=== PATIENT | female | born 1960 | race African-American/Black ===

== ENCOUNTER 2017-11-24 10:27 | Outpatient (CLI) | payer BC ==
--- NOTE | 2017-11-24 12:14 | RAD ---
PA AND LATERAL VIEWS OF THE CHEST: HISTORY: Dyspnea. FINDINGS: The heart size is normal. The lungs are well expanded without focal areas of consolidation, pneumoth orax, or pleural effusions. Mild degenerative changes are seen in the spine. IMPRESSION: No radiograph evidence of acute cardiopulmonary process. POS: [facility]
== END 2017-11-24 10:28 | disposition home or self-care (01) ==
LOC: RAD 10:27
PROVIDERS: ATTEND Internal Medicine Critical Care Medicine
DX: R06.00 Dyspnea, unspecified (principal)
CPT/HCPCS: 71046

== ENCOUNTER 2019-02-24 08:42 | Outpatient (CLI) | payer BC ==
--- NOTE | 2019-02-24 10:27 | MMO ---
Bilateral MAMMO Bilat Screen [facility]. CLINICAL HISTORY: Patient is 58 years old and is seen for screening. The patient has the following family history of breast cancer: mother. The patient has no personal history of cancer. VIEWS: The views performed were: bilateral craniocaudal with tomosynthesis and bilateral mediolateral oblique with tomosynthesis. FILMS COMPARED: The present examination has been compared to prior imaging studies performed at [facility] on 12/12/2011 and 01/09/2016. MAMMOGRAM FINDINGS: There are scattered fibroglandular densities. There are no suspicious masses, suspicious calcifications, or new areas of architectural distortion. IMPRESSION: THERE IS NO MAMMOGRAPHIC EVIDENCE OF MALIGNANCY. A ROUTINE FOLLOW-UP MAMMOGRAM IN 1 YEAR IS RECOMMENDED. THE RESULTS OF THIS EXAM WERE SENT TO THE PATIENT. ACR BI-RADS Category 1 - Negative MAMMOGRAPHY NOTE: 1. A negative mammogram report should not delay a biopsy if a dominant of clinically suspicious mass is present. 2. Approximately 10% to 15% of breast cancers are not detected by mammography. 3. Adenosis and dense breasts may obscure an underlying neoplasm. Reported by: WU MCINTOSH MD Electonically Signed: [id number]
== END 2019-02-24 08:43 | disposition home or self-care (01) ==
LOC: BICMAMMO 08:42
PROVIDERS: ATTEND Family Medicine
DX: Z12.31 Encounter for screening mammogram for malignant neoplasm of breast (principal)
CPT/HCPCS: 77063; 77067

== ENCOUNTER 2022-11-03 10:34 | Outpatient (CLI) | payer BC | END 2022-11-03 10:35 | disposition home or self-care (01) | LOC: LABBT 10:34 | PROVIDERS: ATTEND Student in an Organized Health Care Education/Training Program | DX: Z01.818 Encounter for other preprocedural examination (principal); K14.8 Other diseases of tongue; R59.0 Localized enlarged lymph nodes | CPT/HCPCS: 85014; 93005; 93010 ==

== ENCOUNTER 2022-11-04 05:53 | Day surgery (SDC) | payer BC ==
[2022-11-03 12:07] VITALS: BMI 30.7
[2022-11-04] MEDS ORDERED: EPINEPHrine 1 MG/ML AMP ONE ×2 (06:51→08:08)
[2022-11-04] MEDS ORDERED: fentaNYL PF 100 MCG/2 ML SYRINGE ONE (07:10)
[2022-11-04] MEDS ORDERED: Dexmedetomidine 200 MCG/2 ML VIAL ONE (07:10)
[2022-11-04] MEDS ORDERED: Clindamycin/D5W 600 mg/50 ml Premix Bag ONE (07:27)
[2022-11-04] MEDS ORDERED: GLYCOPYRROLATE/PF 0.2 MG/ML VIAL ONE (07:41)
[2022-11-04] MEDS ORDERED: Lidocaine 1% PF 5 ML VIAL ONE (07:41)
[2022-11-04] MEDS ORDERED: Succinylcholine Chloride 100 MG/5 ML SYRINGE FS ONE (07:41)
[2022-11-04] MEDS ORDERED: Dexamethasone 20 MG/5 ML VIAL ONE (07:41)
[2022-11-04] MEDS ORDERED: Ondansetron PF 4 MG/2 ML Vial ONE (07:41)
[2022-11-04] MEDS ORDERED: PROPOFOL 200 MG/20 ML VIAL ONE ×2 (07:41)
[2022-11-04] MEDS ORDERED: ePHEDrine Sulfate 50 MG/10 ML VIAL ONE (07:41)
== END 2022-11-04 09:43 | disposition home or self-care (01) ==
LOC: SDC 05:53
PROVIDERS: ATTEND Student in an Organized Health Care Education/Training Program
PROC: 0CBS8ZX Excision of Larynx, Via Natural or Artificial Opening Endoscopic, Diagnostic (ICD-10-PCS; principal; 2022-11-04)
PROC: 0CBM8ZX Excision of Pharynx, Via Natural or Artificial Opening Endoscopic, Diagnostic (ICD-10-PCS; principal; 2022-11-04)
PROC: 0DJ08ZZ Inspection of Upper Intestinal Tract, Via Natural or Artificial Opening Endoscopic (ICD-10-PCS; principal; 2022-11-04)
DX: C32.9 Malignant neoplasm of larynx, unspecified (principal); C01 Malignant neoplasm of base of tongue; R59.0 Localized enlarged lymph nodes; I10 Essential (primary) hypertension; F17.210 Nicotine dependence, cigarettes, uncomplicated; G47.30 Sleep apnea, unspecified; J30.1 Allergic rhinitis due to pollen; Z79.899 Other long term (current) drug therapy; Z88.0 Allergy status to penicillin
CPT/HCPCS: 88305; 88331; 88342; J0171; J1100; J2405; J2704; J3490

== ENCOUNTER 2022-11-21 08:45 | Outpatient (CLI) | payer BC | END 2022-11-21 08:46 | LOC: PET 08:45 | PROVIDERS: ATTEND Internal Medicine Hematology & Oncology | DX: C01 Malignant neoplasm of base of tongue (principal) | CPT/HCPCS: 78815; A9552 ==

== ENCOUNTER 2022-11-25 10:31 | Outpatient (CLI) | payer BC | END 2022-11-25 10:32 | disposition home or self-care (01) | LOC: RAD 10:31 | PROVIDERS: ATTEND Radiology Radiation Oncology | DX: R13.19 Other dysphagia (principal); C13.9 Malignant neoplasm of hypopharynx, unspecified; C12 Malignant neoplasm of pyriform sinus | CPT/HCPCS: 74230 ==

== ENCOUNTER 2023-04-17 10:15 | Outpatient (CLI) | payer BC | END 2023-04-17 10:16 | disposition home or self-care (01) | LOC: PET 10:15 | PROVIDERS: ATTEND Radiology Radiation Oncology | DX: C12 Malignant neoplasm of pyriform sinus (principal); R59.0 Localized enlarged lymph nodes | CPT/HCPCS: 78815; A9552 ==

== ENCOUNTER → 2023-05-08 | Day surgery (SDC) | payer BC ==
[~2023-05-08] MED LIST: Lidocaine 1% PF 5 ML VIAL ONE; Lidocaine 1% w/Epinephrine 1:100K 20 ML VIAL ONE; Sodium Bicarbonate 2.5 MEQ/5 ML VIAL ONE
== END ==
LOC: ULT 13:54
PROVIDERS: ATTEND Radiology Radiation Oncology
PROC: 07B63ZX Excision of Left Axillary Lymphatic, Percutaneous Approach, Diagnostic (ICD-10-PCS; principal; 2023-05-08)
DX: C12 Malignant neoplasm of pyriform sinus (principal); C13.9 Malignant neoplasm of hypopharynx, unspecified
CPT/HCPCS: 20206; 88305; 88342

== ENCOUNTER 2024-05-05 10:15 | Outpatient (CLI) | payer BC | END 2024-05-05 10:16 | disposition home or self-care (01) | LOC: PET 10:15 | PROVIDERS: ATTEND Otolaryngology | DX: C14.0 Malignant neoplasm of pharynx, unspecified (principal) | CPT/HCPCS: 78815; A9552 ==

== ENCOUNTER 2024-09-29 07:25 | Outpatient (CLI) | payer BC | END 2024-09-29 07:26 | disposition home or self-care (01) | LOC: CT 07:25 | PROVIDERS: ATTEND Radiology Radiation Oncology | DX: C12 Malignant neoplasm of pyriform sinus (principal); J43.9 Emphysema, unspecified; R91.1 Solitary pulmonary nodule; Z98.890 Other specified postprocedural states | CPT/HCPCS: 36415; 70491; 71260; 82565 ==